=== PATIENT | male | born 1955 | race American Indian/Alaskan Native ===

== ENCOUNTER 2018-09-24 08:47 | Day surgery (SDC) | payer OTHER ==
[2018-09-24] MEDS ORDERED: NACL 0.9% 1000 ML 1,000 ML IV SCH (09:00)
--- NOTE | 2018-09-24 09:46 | Anesthesia Consultation ---
Anesthesia Consult and Med Hx - Airway Anesthetic Teeth Evaluation: Dentures ROM Head & Neck: Adequate Mental/Hyoid Distance: Adequate Mallampati Class: Class II Intubation Access Assessment: Good - Pulmonary Exam CTA: Yes - Cardiac Exam Cardiac Exam: RRR - Pre-Operative Health Status ASA Pre-Surgery Classification: ASA2 Proposed Anesthetic Plan: MAC - Cardiovascular System Hx Hypertension: Yes - Other Systems Hx Alcohol Use: Yes Hx Substance Use: Yes (MARIJUANA)
--- NOTE | 2018-09-24 09:46 | Anesthesia Day of Surgery ---
Anesthesia Day of Surgery - Day of Surgery Patient Examined: Yes Patient H&P Reviewed: Yes Patient is NPO: Yes
[2018-09-24] MEDS ORDERED: WATER FOR IRRIG STERILE IR ONE (12:45)
[2018-09-24] MEDS ORDERED: WATER FOR IRRIG STERILE ONE (12:46)
[2018-09-24] MEDS ORDERED: DIPRIVAN 10 MG/ML IV ONE ×2 (12:51)
--- NOTE | 2018-09-24 13:23 | Discharge Summary ---
Short Stay Discharge Plan Activity: advance as tolerated Weight Bearing Status: Weight Bear as Tolerated Diet: regular Additional Instructions: Post Sedation D/C Instructions When you return home you may resume your regular diet unless otherwise directed. -Go directly home from the hospital and rest quietly. You may resume normal activities tomorrow. -Do NOT drive, return to work, operate any machinery or make any important personal or business decisions today. -Do NOT drink any alcohol or take nerve or sleeping drugs. They add to the effects of the medicine still present in your body. -PLEASE START DAILY OVER THE COUNTER FIBER(FIBERCON, METAMUCIL, ETC) WITH PLENTY OF FLUIDS -NO ASPIRIN OR NSAIDS NEXT 4-5 DAYS -FOLLOW UP WITH DR. ANDERSON IN THE NEXT 1-2 WEEKS FOR RESULTS OF TODAY'S BIOPSY AND ADDITIONAL RESULTS Follow up with: [facility] [Primary Care Provider] - 7 Days
--- NOTE | 2018-09-24 13:23 | Operative Report ---
Operative Report Operative Report: Procedure: Colonoscopy with Cold Snare polypectomy, submucosal injection with elevation of colon polyp. Attending physician: Junior Muir M.D. Aircraft Painter: Junior Muir M.D. Indication: Patient is a 63-year-old male who presents for screening colonoscopy. This colonoscopy serves to evaluate patient so that treatment may be directed based on the findings. Consent: Informed consent was obtained after advising the patient and family regarding nature of this procedure, its indications, potential benefits as well as possible complications including but not limited to bleeding perforation and adverse reaction to medication, infection as well as other cardiopulmonary complications. An informed written and verbal consent was then obtained after due opportunity was provided for questions and answers. Monitoring: Patient was monitored continuously with pulse oximetry and electrocardiographic recordings as well as blood pressure recordings. Vital signs remained stable throughout this procedure with no untoward events. Preoperative assessment: Patient was assessed immediately prior to this procedure for capacity to tolerate monitored anesthesia care and moderate sedation as well as general anesthesia. Patient's ASA classification is 2, Mallampati class is 2, Hyomental distance is 3. Instrument: Olympus video colonoscope.: CF-HQ 190L Medications: Propofol given intravenously in divided doses. For details please refer to anesthesia records. Description of procedure: Patient was placed in the left lateral decubitus position after achieving sedation, a digital rectal examination was performed following which the colonoscope was introduced into the anal verge and advanced to the cecum which was identified by the cecal valve, the appendiceal orifice, as well as by the cecal strap and direct transillumination. The colonoscope was subsequently withdrawn with careful inspection of all mucosal surfaces. Patient tolerated this procedure well and was subsequently taken to the recovery room. The following findings were noted. Findings: Patient had a broad-based sessile polyp seen in the rectum measuring about 10mm. This was elevated with submucosal injection of saline and removed by cold snare polypectomy and retrieved. There were colonic diverticula in the sigmoid and descending colon. There were no additional lesions seen. Patient was noted to have prominent large internal hemorrhoids seen on the retroflexed view at the anal verge. Impression: Rectal polyp status post snare polypectomy and submucosal injection Diverticular disease of the sigmoid colon. Prominent internal hemorrhoids. Plan: Follow pathology report. High-fiber diet. Patient likely will benefit from hemorrhoidal band ligation if he has symptoms.
[2018-09-24 14:05] VITALS: BP 106/69
== END 2018-09-24 08:48 | disposition home or self-care (01) ==
LOC: GIO 08:47
PROVIDERS: ATTEND Internal Medicine Gastroenterology
DX: Z12.11 Encounter for screening for malignant neoplasm of colon (principal); D12.8 Benign neoplasm of rectum; K57.30 Diverticulosis of large intestine without perforation or abscess without bleeding; K64.8 Other hemorrhoids; I10 Essential (primary) hypertension; E78.00 Pure hypercholesterolemia, unspecified; Z85.46 Personal history of malignant neoplasm of prostate; Z72.89 Other problems related to lifestyle; Z79.899 Other long term (current) drug therapy; Z98.890 Other specified postprocedural states
CPT/HCPCS: 88305; J2704; J7030